=== PATIENT | female | born 1970 | race Caucasian/White ===

== ENCOUNTER 2018-07-30 19:05 | Emergency (ER) | payer MEDICAID, OTHER ==
[~2018-07-30] VITALS: Ht 170.2 cm; Wt 65.8 kg
[~2018-07-30 19:05] MED LIST: CARB400T; DEXT10TA9; LORA1TAB
--- OUTSIDE RECORDS SUMMARY | 2018-07-30 19:10 | XMS REPORT ---
Author Author NATE LEE [facility] Address [address] [place] [address] Care Team Providers Care Title I Assistant Name Role Phone JESUSNATE Unavailable PROBLEMS Type Condition ICD9-CM Code [id number] Code Onset Dates Condition Status SNOMED Code Problem Personality disorder in adult F60.9 Active 75635989 Problem Attention deficit disorder of adult F98.8 Active 095136465 Problem Episode of recurrent major depressive disorder, unspecified depression episode severity F33.9 Active 056874110 Problem Adjustment disorder with emotional disturbance F43.29 Active 19846608 Problem Bipolar disorder, unspecified F31.9 Active 25780407 Problem Generalized anxiety disorder F41.1 Active 07530842 ALLERGIES No Information SOCIAL HISTORY Never Assessed PLAN OF CARE Activity Details Follow Up 4 Weeks Reason: VITAL SIGNS Height 67 in 2017-03-17 Weight 182.8 lbs 2017-03-17 Heart Rate 81 bpm 2017-03-17 Respiratory Rate 20 2017-03-17 BMI 28.63 kg/m2 2017-03-17 Blood pressure systolic 130 mmHg 2017-03-17 Blood pressure diastolic 82 mmHg 2017-03-17 MEDICATIONS Medication Instructions Dosage Frequency Start Date End Date Duration Status Concerta 18 MG Orally Once a day 1 tablet in the morning 24h March, Apr, 28 days Active Lamictal 100 MG Orally Twice a day 1/2 tablet 12h Feb, 30 days Active Latuda 60 MG Orally Once a day 1 tablet with food 24h Feb, 30 days Active RESULTS No Results PROCEDURES No Known procedures IMMUNIZATIONS No Known Immunizations MEDICAL (GENERAL) HISTORY Type Description Date Medical History ADHD Medical History Bipolar I Disorder without psychotic features Medical History Tobacco User Surgical History Left Knee Surgical History Ovaries Removed Surgical History Rectum Surgery Hospitalization History Surgeries
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
--- OUTSIDE RECORDS SUMMARY | 2018-07-30 19:11 | XMS REPORT ---
Author Author LARRY NOBLE [facility] Address [address] [place] [address] Care Team Providers Care Client Resource Specialist Name Role Phone REAL LARRY Unavailable PROBLEMS Type Condition ICD9-CM Code [id number] Code Onset Dates Condition Status SNOMED Code Problem Adjustment disorder with emotional disturbance F43.29 Active 42506717 Problem Bipolar disorder, unspecified F31.9 Active 75061321 Problem Generalized anxiety disorder F41.1 Active 20983816 Problem Episode of recurrent major depressive disorder, unspecified depression episode severity F33.9 Active 119880182 Problem PTSD (post-traumatic stress disorder) F43.10 Active 43203069 Problem ADHD, predominantly inattentive type F90.0 Active 61523616 Problem Personality disorder in adult F60.9 Active 20127802 Problem Attention deficit disorder of adult F98.8 Active 014381753 Problem Bipolar 2 disorder F31.81 Active 14387617 Problem Panic disorder with agoraphobia F40.01 Active 07879241 ALLERGIES Substance Reaction Event Type Date Status Tegretol rash limited to trunk Drug Allergy Oct, Active ENCOUNTERS Encounter Location Date Diagnosis [facility] [id number] [address] Nov, Bipolar 2 disorder F31.81 ; PTSD (post-traumatic stress disorder) F43.10 ; ADHD, predominantly inattentive type F90.0 and Panic disorder with agoraphobia F40.01 [facility] [id number] [address] Oct, Bipolar 2 disorder F31.81 ; PTSD (post-traumatic stress disorder) F43.10 ; ADHD, predominantly inattentive type F90.0 and Panic disorder with agoraphobia F40.01 [facility] [id number] [address] Sep, Generalized anxiety disorder F41.1 ; Attention deficit disorder of adult F98.8 and Personality disorder in adult F60.9 [facility] [address], [place] [address] Aug, Generalized anxiety disorder F41.1 ; Attention deficit disorder of adult F98.8 and Personality disorder in adult F60.9 [facility] [address], [place] [address] Jul, Generalized anxiety disorder F41.1 ; Attention deficit disorder of adult F98.8 and Personality disorder in adult F60.9 [facility] [address] [place] [address] Jun, Generalized anxiety disorder F41.1 ; Attention deficit disorder of adult F98.8 and Personality disorder in adult F60.9 [facility] [address] [address] Jun, [facility] [id number] [place] [address] May, Generalized anxiety disorder F41.1 ; Attention deficit disorder of adult F98.8 and Personality disorder in adult F60.9 [facility] [address], [place] [address] Apr, Generalized anxiety disorder F41.1 ; Bipolar disorder, unspecified F31.9 ; Attention deficit disorder of adult F98.8 and Personality disorder in adult F60.9 [facility] [address], [place] [address] Apr, [facility] [address], [place] [address] Apr, Generalized anxiety disorder F41.1 ; Bipolar disorder, unspecified F31.9 ; Attention deficit disorder of adult F98.8 and Personality disorder in adult F60.9 [facility] [address], [place] [address] March, Generalized anxiety disorder F41.1 ; Bipolar disorder, unspecified F31.9 and Attention deficit disorder of adult F98.8 [address] [address] [place] [address] March, Generalized anxiety disorder F41.1 ; Bipolar disorder, unspecified F31.9 and Attention deficit disorder of adult F98.8 [place] [address], [place] [address] Feb, Bipolar disorder, unspecified F31.9 [place] [id number] [place] [address] Feb, Generalized anxiety disorder F41.1 and Bipolar disorder, unspecified F31.9 [address] [address] [place] [address] Jan, [address] [id number] [place] [address] Jan, [address] [address] [id number] [place] [address] Jan, Adjustment disorder with emotional disturbance F43.29 ; Episode of recurrent major depressive disorder, unspecified depression episode severity F33.9 and Generalized anxiety disorder F41.1 IMMUNIZATIONS No Known Immunizations SOCIAL HISTORY Never Assessed REASON FOR VISIT intake PLAN OF CARE Activity Details Follow Up 4 Weeks Reason: VITAL SIGNS Height 67 in 2017-10-19 Weight 172.4 lbs 2017-10-19 Heart Rate 76 bpm 2017-10-19 Respiratory Rate 20 2017-10-19 BMI 27.00 kg/m2 2017-10-19 Blood pressure systolic 104 mmHg 2017-10-19 Blood pressure diastolic 70 mmHg 2017-10-19 MEDICATIONS Medication Instructions Dosage Frequency Start Date End Date Duration Status Fluoxetine HCl 60 mg Orally Once a day 1 tablet 24h Active Prazosin HCl 1 MG Orally for nightmares 1 capsule at bedtime Oct, Active Haloperidol 0.5 MG Orally at bedtime 1 tablet Active Adderall XR 30 MG Orally Once a day 1 capsule in the morning 24h Active Haloperidol 5 mg Orally at bedtime 1 tablet 30 days Unknown Amoxicillin 500 MG Orally 3 times a day 1 tablet 8h Unknown RESULTS No Results PROCEDURES Procedure Date Ordered Result Body Site Psychotherapy, patient &/family, with E&M, 30 minutes, established patient Oct 19, 2017 INSTRUCTIONS MEDICATIONS ADMINISTERED No Known Medications MEDICAL [...]
--- OUTSIDE RECORDS SUMMARY | 2018-07-30 19:11 | XMS REPORT ---
Author Author MOUSTAPHA WEEMS Organization [facility] Address [address] [place] [address] Care Team Providers Care Director Auto Name Role Phone MOUSTAPHA WEEMS Unavailable PROBLEMS Type Condition ICD9-CM Code [id number] Code Onset Dates Condition Status SNOMED Code Problem Personality disorder in adult F60.9 Active 34734396 Problem Attention deficit disorder of adult F98.8 Active 732968606 Problem Episode of recurrent major depressive disorder, unspecified depression episode severity F33.9 Active 327965631 Problem Adjustment disorder with emotional disturbance F43.29 Active 14982221 Problem Bipolar disorder, unspecified F31.9 Active 04463698 Problem Generalized anxiety disorder F41.1 Active 19235329 ALLERGIES No Information SOCIAL HISTORY Never Assessed PLAN OF CARE Activity Details Follow Up Not scheduled with me Reason:psychiatric provider VITAL SIGNS MEDICATIONS Unknown Medications RESULTS No Results PROCEDURES Procedure Date Ordered Result Body Site Psych diagnostic evaluation, new patient January 23, 2017 IMMUNIZATIONS No Known Immunizations MEDICAL (GENERAL) HISTORY Type Description Date Medical History ADHD Medical History Bipolar I Disorder without psychotic features Medical History Tobacco User Surgical History Left Knee Surgical History Ovaries Removed Surgical History Rectum Surgery Hospitalization History Surgeries
--- OUTSIDE RECORDS SUMMARY | 2018-07-30 19:11 | XMS REPORT ---
Author Author NATE LEE [facility] Address [address] [place] [address] Care Team Providers Care Sprinkling System Installer Name Role Phone NATE LEE Unavailable PROBLEMS Type Condition ICD9-CM Code TII33-AR Code Onset Dates Condition Status SNOMED Code Problem Adjustment disorder with emotional disturbance F43.29 Active 36836053 Problem Bipolar disorder, unspecified F31.9 Active 97764855 Problem Generalized anxiety disorder F41.1 Active 27935557 Problem Episode of recurrent major depressive disorder, unspecified depression episode severity F33.9 Active 421078069 Problem PTSD (post-traumatic stress disorder) F43.10 Active 03060194 Problem ADHD, predominantly inattentive type F90.0 Active 05531670 Problem Personality disorder in adult F60.9 Active 28772355 Problem Attention deficit disorder of adult F98.8 Active 119005631 Problem Bipolar 2 disorder F31.81 Active 80846395 Problem Panic disorder with agoraphobia F40.01 Active 02836935 ALLERGIES Substance Reaction Event Type Date Status Tegretol Unknown Drug Allergy Jun, Active ENCOUNTERS Encounter Location Date Diagnosis [address] [place] [address] Nov, Bipolar 2 disorder F31.81 ; PTSD (post-traumatic stress disorder) F43.10 ; ADHD, predominantly inattentive type F90.0 and Panic disorder with agoraphobia F40.01 [id number], [place] [address] Oct, Bipolar 2 disorder F31.81 ; PTSD (post-traumatic stress disorder) F43.10 ; ADHD, predominantly inattentive type F90.0 and Panic disorder with agoraphobia F40.01 [address] [place] [address] Sep, Generalized anxiety disorder F41.1 ; Attention deficit disorder of adult F98.8 and Personality disorder in adult F60.9 [facility] [place] [address], [place] [address] Aug, Generalized anxiety disorder F41.1 ; Attention deficit disorder of adult F98.8 and Personality disorder in adult F60.9 [facility] [place] [address], [place] [address] Jul, Generalized anxiety disorder F41.1 ; Attention deficit disorder of adult F98.8 and Personality disorder in adult F60.9 [facility] [place] [address], [place] [address] Jun, Generalized anxiety disorder F41.1 ; Attention deficit disorder of adult F98.8 and Personality disorder in adult F60.9 [facility] [place] [address], [place] [address] Jun, [facility] [place] [id number] [place] [address] May, Generalized anxiety disorder F41.1 ; Attention deficit disorder of adult F98.8 and Personality disorder in adult F60.9 [facility] [place] [address], [place] [address] Apr, Generalized anxiety disorder F41.1 ; Bipolar disorder, unspecified F31.9 ; Attention deficit disorder of adult F98.8 and Personality disorder in adult F60.9 [facility] [place] [address], [place] [address] Apr, [facility] [place] [address], [place] [address] Apr, Generalized anxiety disorder F41.1 ; Bipolar disorder, unspecified F31.9 ; Attention deficit disorder of adult F98.8 and Personality disorder in adult F60.9 [facility] [place] [address], [place] [address] March, Generalized anxiety disorder F41.1 ; Bipolar disorder, unspecified F31.9 and Attention deficit disorder of adult F98.8 [address] [place] [address] March, Generalized anxiety disorder F41.1 ; Bipolar disorder, unspecified F31.9 and Attention deficit disorder of adult F98.8 [address], [place] [address] Feb, Bipolar disorder, unspecified F31.9 [address] [id number] [place] [address] Feb, Generalized anxiety disorder F41.1 and Bipolar disorder, unspecified F31.9 [place] [id number] [place] [address] Jan, [place] [id number] [place] [address] Jan, [address] [id number] [place] [address] Jan, Adjustment disorder with emotional disturbance F43.29 ; Episode of recurrent major depressive disorder, unspecified depression episode severity F33.9 and Generalized anxiety disorder F41.1 IMMUNIZATIONS No Known Immunizations SOCIAL HISTORY Never Assessed REASON FOR VISIT torsten/haley Luciano MA PLAN OF CARE Activity Details Follow Up 4 Weeks Reason: VITAL SIGNS Height 67 in 2017-06-28 Weight 174.9 lbs 2017-06-28 Heart Rate 80 bpm 2017-06-28 Respiratory Rate 20 2017-06-28 BMI 27.39 kg/m2 2017-06-28 Blood pressure systolic 113 mmHg 2017-06-28 Blood pressure diastolic 77 mmHg 2017-06-28 MEDICATIONS Medication Instructions Dosage Frequency Start Date End Date Duration Status Advil 200 MG Orally every 6 hrs 1 tablet with food or milk as needed 6h Active Fluoxetine HCl 40 mg Orally Once a day 1 tablet in the morning 24h 30 day(s) Active Haloperidol 5 mg Orally Once a day 1 tablet 24h 30 days Active Adderall XR 30 MG Orally Once a day 1 capsule in the morning 24h Jun, 28 days Active RESULTS Name Result Date Reference Range URINE DRUG SCREEN (IN HOUSE) 2017-06-28 Lot # [id number] Exp date 2018-12 Control + COCAINE Negative AMPH Positive MTD Negative THC Positive OPIATE Negative BENZO Negative PCP Negative BAR Negative OXY Negative MAMP Negative TCA Not tested BUP Negative MDMA Negative PROCEDURES Procedure Date Ordered Result Body Site DRUG TEST PRSMV DIR OPT OBS Jun 28, 2017 INSTRUCTIONS MEDICATIONS ADMINISTERED No Known Medications [...]
--- OUTSIDE RECORDS SUMMARY | 2018-07-30 19:11 | XMS REPORT ---
Author Author NATE LEE [facility] Address [address] [place] [address] Care Team Providers Care Horticulture Instructor Name Role Phone NEGRA LEEGEOFF Unavailable PROBLEMS Type Condition ICD9-CM Code [id number] Code Onset Dates Condition Status SNOMED Code Problem Personality disorder in adult F60.9 Active 04711879 Problem Attention deficit disorder of adult F98.8 Active 122258505 Problem Episode of recurrent major depressive disorder, unspecified depression episode severity F33.9 Active 522782914 Problem Adjustment disorder with emotional disturbance F43.29 Active 12914593 Problem Bipolar disorder, unspecified F31.9 Active 50533401 Problem Generalized anxiety disorder F41.1 Active 25113328 ALLERGIES Substance Reaction Event Type Date Status Tegretol Unknown Drug Allergy Feb, Active SOCIAL HISTORY Never Assessed PLAN OF CARE Activity Details Follow Up 2 Weeks Reason: VITAL SIGNS Height 67 in 2017-03-03 Weight 190.3 lbs 2017-03-03 Heart Rate 76 bpm 2017-03-03 Respiratory Rate 20 2017-03-03 BMI 29.80 kg/m2 2017-03-03 Blood pressure systolic 128 mmHg 2017-03-03 Blood pressure diastolic 90 mmHg 2017-03-03 MEDICATIONS Medication Instructions Dosage Frequency Start Date End Date Duration Status Adderall 15 MG Orally twice a day 1 tablet 12h Active Lamictal 25 MG Orally Twice a day 1 tablet 12h Feb, 30 day(s) Active Lorazepam 1 MG Orally 3 times a day 1 tablet at bedtime as needed 8h Active Albuterol Sulfate HFA 108 (90 Base) MCG/ACT Inhalation every 4 hrs 2 puffs as needed 4h Active Haloperidol 5 mg Orally Once a day .5 tablet 24h Active Latuda 40 MG Orally Once a day 1 tablet with food 24h Feb, 30 day(s) Active RESULTS No Results PROCEDURES No Known procedures IMMUNIZATIONS No Known Immunizations MEDICAL (GENERAL) HISTORY Type Description Date Medical History ADHD Medical History Bipolar I Disorder without psychotic features Medical History Tobacco User Surgical History Left Knee Surgical History Ovaries Removed Surgical History Rectum Surgery Hospitalization History Surgeries
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
--- OUTSIDE RECORDS SUMMARY | 2018-07-30 19:11 | XMS REPORT ---
Author Author NATE LEE [facility] Address [address] [place] [address] Care Team Providers Care Manager Project Name Role Phone NATE LEE Unavailable PROBLEMS Type Condition ICD9-CM Code [id number] Code Onset Dates Condition Status SNOMED Code Problem Adjustment disorder with emotional disturbance F43.29 Active 51208747 Problem Bipolar disorder, unspecified F31.9 Active 49348414 Problem Generalized anxiety disorder F41.1 Active 37900821 Problem Episode of recurrent major depressive disorder, unspecified depression episode severity F33.9 Active 626146050 Problem PTSD (post-traumatic stress disorder) F43.10 Active 40155388 Problem ADHD, predominantly inattentive type F90.0 Active 03439052 Problem Personality disorder in adult F60.9 Active 96261973 Problem Attention deficit disorder of adult F98.8 Active 350502953 Problem Bipolar 2 disorder F31.81 Active 12899835 Problem Panic disorder with agoraphobia F40.01 Active 80141792 ALLERGIES Substance Reaction Event Type Date Status Tegretol Unknown Drug Allergy Apr, Active ENCOUNTERS Encounter Location Date Diagnosis [address] [id number] [place] [address] Nov, Bipolar 2 disorder F31.81 ; PTSD (post-traumatic stress disorder) F43.10 ; ADHD, predominantly inattentive type F90.0 and Panic disorder with agoraphobia F40.01 [address] [id number] [address] Oct, Bipolar 2 disorder F31.81 ; PTSD (post-traumatic stress disorder) F43.10 ; ADHD, predominantly inattentive type F90.0 and Panic disorder with agoraphobia F40.01 [address] [place] [address] Sep, Generalized anxiety disorder F41.1 ; Attention deficit disorder of adult F98.8 and Personality disorder in adult F60.9 [facility] [address] [address] Aug, Generalized anxiety disorder F41.1 ; Attention deficit disorder of adult F98.8 and Personality disorder in adult F60.9 [facility] [address] [address] Jul, Generalized anxiety disorder F41.1 ; Attention deficit disorder of adult F98.8 and Personality disorder in adult F60.9 [facility] [address] [address] Jun, Generalized anxiety disorder F41.1 ; Attention deficit disorder of adult F98.8 and Personality disorder in adult F60.9 [facility] [address] [address] Jun, [facility] [id number] [place] [address] May, Generalized anxiety disorder F41.1 ; Attention deficit disorder of adult F98.8 and Personality disorder in adult F60.9 [facility] [address] [address] Apr, Generalized anxiety disorder F41.1 ; Bipolar disorder, unspecified F31.9 ; Attention deficit disorder of adult F98.8 and Personality disorder in adult F60.9 [facility] [address] [address] Apr, [facility] [address] [address] Apr, Generalized anxiety disorder F41.1 ; Bipolar disorder, unspecified F31.9 ; Attention deficit disorder of adult F98.8 and Personality disorder in adult F60.9 [facility] [address] [address] March, Generalized anxiety disorder F41.1 ; Bipolar disorder, unspecified F31.9 and Attention deficit disorder of adult F98.8 [address] [address] [place] [address] March, Generalized anxiety disorder F41.1 ; Bipolar disorder, unspecified F31.9 and Attention deficit disorder of adult F98.8 [address] [address] Feb, Bipolar disorder, unspecified F31.9 [address] [id number] [place] [address] Feb, Generalized anxiety disorder F41.1 and Bipolar disorder, unspecified F31.9 [address] [id number] [place] [address] Jan, [address] [id number] [place] [address] Jan, [id number] [place] [address] Jan, Adjustment disorder with emotional disturbance F43.29 ; Episode of recurrent major depressive disorder, unspecified depression episode severity F33.9 and Generalized anxiety disorder F41.1 IMMUNIZATIONS No Known Immunizations SOCIAL HISTORY Never Assessed REASON FOR VISIT f/keenan Soto PLAN OF CARE Activity Details Follow Up 4 Weeks Reason: VITAL SIGNS Height 67 in 2017-05-05 Weight 184.3 lbs 2017-05-05 Heart Rate 68 bpm 2017-05-05 Respiratory Rate 20 2017-05-05 BMI 28.86 kg/m2 2017-05-05 Blood pressure systolic 116 mmHg 2017-05-05 Blood pressure diastolic 84 mmHg 2017-05-05 MEDICATIONS Medication Instructions Dosage Frequency Start Date End Date Duration Status Adderall XR 20 MG Orally Once a day 1 capsule in the morning 24h Apr, 28 days Active Haloperidol 5 mg Orally Once a day 1 tablet 24h 30 days Active Fluoxetine HCl 20 MG Orally Once a day 1 tablet in the morning 24h Apr, 30 day(s) Active Advil 200 MG Orally every 6 hrs 1 tablet with food or milk as needed 6h Active RESULTS No Results PROCEDURES No Known [...]
--- OUTSIDE RECORDS SUMMARY | 2018-07-30 19:11 | XMS REPORT ---
Author Author NATE LEE [facility] Address [address] [place] [address] Care Team Providers Care Force Dispatcher Name Role Phone JESUSNATE Unavailable PROBLEMS Type Condition ICD9-CM Code [id number] Code Onset Dates Condition Status SNOMED Code Problem Personality disorder in adult F60.9 Active 14091489 Problem Attention deficit disorder of adult F98.8 Active 694207955 Problem Episode of recurrent major depressive disorder, unspecified depression episode severity F33.9 Active 293609594 Problem Adjustment disorder with emotional disturbance F43.29 Active 54307028 Problem Bipolar disorder, unspecified F31.9 Active 03185295 Problem Generalized anxiety disorder F41.1 Active 02089296 ALLERGIES Substance Reaction Event Type Date Status Tegretol Unknown Drug Allergy March, Active SOCIAL HISTORY Never Assessed PLAN OF CARE Activity Details Follow Up 6 Weeks Reason: VITAL SIGNS Height 67 in 2017-03-29 Weight 177.2 lbs 2017-03-29 Heart Rate 118 bpm 2017-03-29 Respiratory Rate 22 2017-03-29 BMI 27.75 kg/m2 2017-03-29 Blood pressure systolic 113 mmHg 2017-03-29 Blood pressure diastolic 85 mmHg 2017-03-29 MEDICATIONS Medication Instructions Dosage Frequency Start Date End Date Duration Status Haloperidol 5 mg Orally Once a day .5 tablet 24h 30 days Active Adderall XR 10 mg Orally Once a day 1 capsule in the morning 24h March, 28 days Active RESULTS No Results PROCEDURES No Known procedures IMMUNIZATIONS No Known Immunizations MEDICAL (GENERAL) HISTORY Type Description Date Medical History ADHD Medical History Bipolar I Disorder without psychotic features Medical History Tobacco User Surgical History Left Knee Surgical History Ovaries Removed Surgical History Rectum Surgery Hospitalization History Surgeries
--- OUTSIDE RECORDS SUMMARY | 2018-07-30 19:12 | XMS REPORT | Continuity of Care Document ---
Author Author [facility] Organization [facility] Address Unknown Phone Unavailable Allergies Active Description Code Type Severity Reaction Onset Reported/Identified Relationship to Patient Clinical Status Yes No Known Drug Allergies [id number] Drug Allergy Mild N/A 11/03/2009 Medications There is no data. Problems Date Dx Coded Attending Type Code Diagnosis Diagnosed By 11/09/2009 Ot 455.3 EXT HEMORRHOID W/O COMPL 11/09/2009 Ot 455.9 RESIDUAL HEMORRHOID TAGS 11/09/2009 Ot 565.0 ANAL FISSURE 02/12/2015 Ot 455.9 02/12/2015 Ot 565.1 02/12/2015 Ot V72.83 02/12/2015 Ot V74.8 05/27/2016 STEFANIE GARCIA MD Ot 311 DEPRESSIVE DISORDER NEC 05/27/2016 STEFANIE GARCIA MD Ot 575.8 DIS OF GALLBLADDER NEC 05/27/2016 STEFANIE GARCIA MD Ot 780.79 OTH MALAISE FATIGUE 05/27/2016 STEFANIE GARCIA MD Ot 780.99 OTHER GENERAL SYMPTOMS NOS 05/27/2016 STEFANIE GARCIA MD Ot 783.1 ABNORMAL WEIGHT GAIN 05/28/2016 STEFANIE GARCIA MD Ot 311 DEPRESSIVE DISORDER NEC 05/28/2016 STEFANIE GARCIA MD Ot 575.8 DIS OF GALLBLADDER NEC 05/28/2016 STEFANIE GARCIA MD Ot 780.79 OTH MALAISE FATIGUE 05/28/2016 STEFANIE GARCIA MD Ot 780.99 OTHER GENERAL SYMPTOMS NOS 05/28/2016 STEFANIE GARCIA MD Ot 783.1 ABNORMAL WEIGHT GAIN 06/17/2016 STEFANIE GARCIA MD Ot 311 DEPRESSIVE DISORDER NEC 06/17/2016 STEFANIE GARCIA MD Ot 575.8 DIS OF GALLBLADDER NEC 06/17/2016 STEFANIE GARCIA MD Ot 780.79 OTH MALAISE FATIGUE 06/17/2016 STEFANIE GARCIA MD Ot 780.99 OTHER GENERAL SYMPTOMS NOS 06/17/2016 STEFANIE GARCIA MD Ot 783.1 ABNORMAL WEIGHT GAIN 06/20/2016 STEFANIE GARCIA MD Ot 311 DEPRESSIVE DISORDER NEC 06/20/2016 STEFANIE GARCIA MD Ot 575.8 DIS OF GALLBLADDER NEC 06/20/2016 STEFANIE GARCIA MD Ot 780.79 OTH MALAISE FATIGUE 06/20/2016 STEFANIE GARCIA MD Ot 780.99 OTHER GENERAL SYMPTOMS NOS 06/20/2016 STEFANIE GARCIA MD Ot 783.1 ABNORMAL WEIGHT GAIN 07/22/2016 STEFANIE GARCIA MD Ot 311 DEPRESSIVE DISORDER NEC 07/22/2016 STEFANIE GARCIA MD Ot 575.8 DIS OF GALLBLADDER NEC 07/22/2016 STEFANIE GARCIA MD Ot 780.79 OTH MALAISE FATIGUE 07/22/2016 STEFANIE GARCIA MD Ot 780.99 OTHER GENERAL SYMPTOMS NOS 07/22/2016 STEFANIE GARCIA MD Ot 783.1 ABNORMAL WEIGHT GAIN 07/22/2016 YARITZA SNELL MD Ot 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, CRNT EPSD MIXED, SEVERE, 07/22/2016 YARITZA SNELL MD Ot F90.2 ATTENTION-DEFICIT HYPERACTIVITY DISORDER 07/22/2016 YARITZA SNELL MD Ot 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, CRNT EPSD MIXED, SEVERE, 07/22/2016 YARITZA SNELL MD Ot F90.2 ATTENTION-DEFICIT HYPERACTIVITY DISORDER 07/22/2016 STEFANIE GARCIA MD Ot 311 DEPRESSIVE DISORDER NEC 07/22/2016 STEFANIE GARCIA MD Ot 575.8 DIS OF GALLBLADDER NEC 07/22/2016 STEFANIE GARCIA MD Ot 780.79 OTH MALAISE FATIGUE 07/22/2016 STEFANIE GARCIA MD Ot 780.99 OTHER GENERAL SYMPTOMS NOS 07/22/2016 STEFANIE GARCIA MD Ot 783.1 ABNORMAL WEIGHT GAIN 07/22/2016 YARITZA SNELL MD Ot 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, CRNT EPSD MIXED, SEVERE, 07/22/2016 YARITZA SNELL MD Ot F90.2 ATTENTION-DEFICIT HYPERACTIVITY DISORDER 07/25/2016 YARITZA SNELL MD, Ot 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, CRNT EPSD MIXED, SEVERE, 07/25/2016 YARITZA SNELL MD Ot F90.2 ATTENTION-DEFICIT HYPERACTIVITY DISORDER 07/25/2016 YARITZA SNELL MD Ot Z79.899 OTHER RESIDENTIAL (CURRENT) DRUG THERAPY 07/26/2016 YARITZA SNELL MD, Ot 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, CRNT EPSD MIXED, SEVERE, 07/26/2016 YARITZA SNELL MD Ot F90.2 ATTENTION-DEFICIT HYPERACTIVITY DISORDER 07/26/2016 YARITZA SNELL MD Ot Z79.899 OTHER RESIDENTIAL (CURRENT) DRUG THERAPY 08/04/2016 STEFANIE GARCIA MD Ot 311 DEPRESSIVE DISORDER NEC 08/04/2016 STEFANIE GARCIA MD Ot 575.8 DIS OF GALLBLADDER NEC 08/04/2016 STEFANIE GARCIA MD Ot 780.79 OTH MALAISE FATIGUE 08/04/2016 STEFANIE GARCIA MD Ot 780.99 OTHER GENERAL SYMPTOMS NOS 08/04/2016 STEFANIE GARCIA MD Ot 783.1 ABNORMAL WEIGHT GAIN 08/04/2016 YARITZA SNELL MD Ot 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, CRNT EPSD MIXED, SEVERE, 08/04/2016 YARITZA SNELL MD Ot F90.2 ATTENTION-DEFICIT HYPERACTIVITY DISORDER 08/10/2016 YARITZA SNELL MD Ot 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, CRNT EPSD MIXED, SEVERE, 08/10/2016 YARITZA SNELL MD Ot F90.2 ATTENTION-DEFICIT HYPERACTIVITY DISORDER 08/10/2016 YARITZA SNELL MD Ot Z79.899 OTHER CANE WEIGHER (CURRENT) DRUG THERAPY 08/12/2016 Ot 455.9 RESIDUAL HEMORRHOID TAGS 08/12/2016 Ot 565.1 ANAL FISTULA 08/12/2016 Ot V72.83 EXAM PRE- OPERATIVE NEC 08/12/2016 Ot V74.8 SCREEN- BACTERIAL DIS NEC 08/12/2016 STEFANIE GARCIA MD Ot 311 DEPRESSIVE DISORDER NEC 08/12/2016 STEFANIE GARCIA MD Ot 575.8 DIS OF GALLBLADDER NEC 08/12/2016 STEFANIE GARCIA MD Ot 780.79 OTH MALAISE FATIGUE 08/12/2016 STEFANIE GARCIA MD Ot 780.99 OTHER GENERAL SYMPTOMS NOS 08/12/2016 STEFANIE GARCIA MD Ot 783.1 ABNORMAL WEIGHT GAIN 08/12/2016 YARITZA SNELL MD, Ot 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, CRNT EPSD MIXED, SEVERE, 08/12/2016 YARITZA SNELL MD Ot F90.2 ATTENTION-DEFICIT HYPERACTIVITY DISORDER 08/12/2016 YARITZA SNELL MD, Ot 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, CRNT EPSD MIXED, SEVERE, 08/12/2016 YARITZA SNELL MD, Ot F90.2 ATTENTION-DEFICIT HYPERACTIVITY DISORDER 08/12/2016 YARITZA SNELL MD Ot Z79.899 OTHER CANE WEIGHER (CURRENT) DRUG THERAPY 11/22/2017 YARITZA SNELL MD, Ot 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 Results Test Result Range Complete blood count (CBC) with automated white blood cell (WBC) differential - 06/20/16 08:39 Blood leukocytes automated count (number/volume) 9.0 10*3/uL 4.3-11.0 Blood erythrocytes automated count (number/volume) 5.06 10*6/uL 4.35-5.85 Venous blood hemoglobin measurement (mass/volume) 15.8 g/dL 11.5-16.0 Blood hematocrit (volume fraction) 46 % 35-52 Automated erythrocyte mean corpuscular volume 92 [foz_us] 80-99 Automated erythrocyte mean corpuscular hemoglobin (mass per erythrocyte) 31 pg 25-34 Automated erythrocyte mean corpuscular hemoglobin concentration measurement ( mass/volume) 34 g/dL 32-36 Automated erythrocyte distribution width ratio 12.6 % 10.0-14.5 Automated blood platelet count (count/volume) 347 10*3/uL 130-400 Automated blood platelet mean volume measurement 10.8 [foz_us] 7.4-10.4 Automated blood neutrophils/100 leukocytes 62 % 42-75 Automated blood lymphocytes/100 leukocytes 25 % 12-44 Blood monocytes/100 leukocytes 10 % 0-12 Automated blood eosinophils/100 leukocytes 3 % 0-10 Automated blood basophils/100 leukocytes 1 % 0-10 Blood neutrophils automated count (number/volume) 5.5 10*3 1.8-7.8 Blood lymphocytes automated count (number/volume) 2.3 10*3 1.0-4.0 Blood monocytes automated count (number/volume) 0.9 10*3 0.0-1.0 Automated eosinophil count 0.3 10*3/uL 0.0-0.3 Automated blood basophil count (count/volume) 0.1 10*3/uL 0.0-0.1 Comprehensive metabolic panel - 06/20/16 08:39 Serum or plasma sodium measurement (moles/volume) 137 mmol/L 135-145 Serum or plasma potassium measurement (moles/volume) 4.1 mmol/L 3.6-5.0 Serum or plasma chloride measurement (moles/volume) 105 mmol/L 98-107 Carbon dioxide 27 mmol/L 21-32 Serum or plasma anion gap determination (moles/volume) 5 mmol/L 5-14 Serum or plasma urea nitrogen measurement (mass/volume) 7 mg/dL 7-18 Serum or plasma creatinine measurement (mass/volume) 0.78 mg/dL 0.60-1.30 Serum or plasma urea nitrogen/creatinine mass ratio 9 NRG Serum or plasma creatinine measurement with calculation of estimated glomerular filtration rate > NRG Serum or plasma glucose measurement (mass/volume) 115 mg/dL 70-105 Serum or plasma calcium measurement (mass/volume) 9.2 mg/dL 8.5-10.1 Serum or plasma total bilirubin measurement (mass/volume) 0.2 mg/dL 0.1-1.0 Serum or plasma alkaline phosphatase measurement (enzymatic activity/volume) 65 U/L 40-136 Serum or plasma aspartate aminotransferase measurement (enzymatic activity/ volume) 21 U/L 5-34 Serum or plasma alanine aminotransferase measurement (enzymatic activity/volume ) 15 U/L 0-55 Serum or plasma protein measurement (mass/volume) 7.1 g/dL 6.4-8.2 Serum or plasma albumin measurement (mass/volume) 4.3 g/dL 3.2-4.5 THYROID STIMULATING HORMONE - 06/20/16 08:39 THYROID STIMULATING HORMONE 8.61 u[iU]/mL 0.35-4.94 LITHIUM LEVEL - 06/20/16 08:39 [place] [mass/volume] in serum or plasma 0.4 % 0.5-1.5 LITHIUM LEVEL - 07/22/16 11:38 [place] [mass/volume] in serum or plasma 0.7 % 0.5-1.5 Encounters ACCT No. Visit Date/Time Discharge Status Pt. Type Provider Facility Loc./Unit Complaint [id number] 07/22/2016 11:01:00 07/22/2016 23:59:59 CLS Outpatient YARITZA SNELL MD [facility] LAB ADHD, BIPOLAR I DISORDER [id number] 06/20/2016 08:36:00 06/20/2016 23:59:59 CLS Outpatient YARITZA SNELL MD [facility] LAB BIPOLAR I DISORDER, PSYCHOTIC FEATURES, ADHD [id number] 02/12/2015 11:39:00 02/12/2015 23:59:59 CLS Outpatient STEFANIE GARCIA MD [facility] LAB FATIGUE,COLD INTOLERENCE,DEPRESSION,WT GAIN [id number] 07/30/2018 19:06:00 ACT Emergency KIRIT BERNARDO DO [facility] ER ABD PAIN [id number] 11/09/2009 05:45:00 Document Registration [id number] 11/03/2009 09:19:00 Document Registration [id number] 12/12/2017 12:00:00 12/12/2017 23:59:59 CLS Outpatient MALLORY MAYORGA LAC [facility]
[2018-07-30 20:47] LABS: BASOPHILS % (AUTO) 0 % (0-10); EOSINOPHILS # (AUTO) 0.2 10^3/uL (0.0-0.3); EOSINOPHILS % (AUTO) 2 % (0-10); HEMATOCRIT 42 % (35-52); LYMPHOCYTES % (AUTO) 33 % (12-44); MEAN CORPUSCULAR HEMOGLOBIN 31 PG (25-34); MEAN CORPUSCULAR HGB CONC 33 G/DL (32-36); MEAN CORPUSCULAR VOLUME 93 FL (80-99); MEAN PLATELET VOLUME 10.8 FL (7.4-10.4); MONOCYTES # (AUTO) 0.6 X 10^3 (0.0-1.0); MONOCYTES % (AUTO) 7 % (0-12); NEUTROPHILS # (AUTO) 5.1 X 10^3 (1.8-7.8); NEUTROPHILS % (AUTO) 58 % (42-75); PLATELET COUNT 366 10^3/uL (130-400); RED BLOOD COUNT 4.55 10^6/uL (4.35-5.85); RED CELL DISTRIBUTION WIDTH 13.3 % (10.0-14.5); WHITE BLOOD COUNT 8.9 10^3/uL (4.3-11.0)
--- NOTE | 2018-07-30 20:59 | ED Abdominal Pain ---
General Chief Complaint: Abdominal/GI Problems Stated Complaint: ABD PAIN Nursing Triage Note: pt reports started approx 6 weeks ago. states diarrhea off and on. verbalized some bright red even black stools since. states worsening. Sepsis Screen: No Definite Risk Source of Information: Patient Exam Limitations: No Limitations History of Present Illness Date Seen by Provider: Jul 30, 2018 Time Seen by Provider: 20:35 Initial Comments Here with report of intermittent abdominal pain over the last 6 weeks as well as rectal bleeding for the last 10 years. She states the bleeding is been on and off but she did note a black stool today. Denies nausea or vomiting. Abdominal pain is in the upper abdomen and reports his cramping. She has moved from [place] to [place] to [place] to [place] now. She is going to be staying here. Her mental health provider is here in town. Timing/Duration: Changing Over Time, Other (6 weeks) Severity/Quality: Moderate, Severe, Cramping Location: Epigastric Radiation: RUQ Modifying Factors: Improves With Antacids Associated Symptoms: No Fever/Chills; Other (intermittent bloody stools or black stools) Allergies and Home Medications Allergies Coded Allergies: No Known Drug Allergies (Unverified , 11/03/09) Patient Home Medication List Home Medication List Reviewed: Yes Review of Systems Review of Systems Constitutional: no symptoms reported EENTM: Nose Congestion; No Throat Pain Respiratory: Cough, Shortness of Air Cardiovascular: No Symptoms Reported Gastrointestinal: Abdominal Pain, Rectal Bleeding Genitourinary: Frequency, Urgency Musculoskeletal: no symptoms reported All Other Systems Reviewed Negative Unless Noted: Yes Past Xsgzkca-Vrfocj-Jtsaho Hx Past Med/Social Hx: Reviewed Nursing Past Med/Soc Hx Patient Social History Alcohol Use: Occasionally Uses Recreational Drug Use: Yes (pot) Smoking Status: Current Everyday Smoker Type Used: Cigarettes 2nd Hand Smoke Exposure: Yes Recent Foreign Travel: No Contact w/Someone Who Travel: No Recent Infectious Disease Expo: No Recent Hopitalizations: No Past Medical History Surgeries: Yes (ovarian cyst removal, rectal reconstruction ) Orthopedic Respiratory: Yes (DOES WHEEZE SOME DUE TO INGESTING PINESOL AN ) Cardiac: No Neurological: Yes (MIGRAINS) Reproductive Disorders: No Sexually Transmitted Disease: No Genitourinary: No Gastrointestinal: No Musculoskeletal: No Endocrine: No HEENT: No Cancer: No Psychosocial: Yes ADD/ADHD, Anxiety, Bipolar, Depression Integumentary: No Blood Disorders: No Family Medical History Reviewed Nursing Family Hx Physical Exam Vital Signs Vital Signs - First Documented 07/30/18 19:58 Temp 97.9 Pulse 68 Resp 20 B/P (MAP) 122/61 (81) Pulse Ox 99 O2 Delivery Room Air Capillary Refill : Less Than 3 Seconds Height/Weight/BMI Height: 5'7.00" Weight: 145lbs. oz. 65.956231lw; BMI Method:Stated General Appearance: WD/WN, mild distress HEENT: PERRL/EOMI, pharynx normal Neck: full range of motion, supple Respiratory: normal breath sounds, no respiratory distress, no accessory muscle use Cardiovascular: regular rate, rhythm, no murmur Gastrointestinal: normal bowel sounds, soft; No distended, No guarding, No rebound; tenderness (RUQ mild) Genital/Rectal: heme negative stool, other (scarring and tenderness of the rectum. Few hemorrhoids noted. No blood.) Extremities: non-tender, normal inspection Back: normal inspection, no CVA tenderness, no vertebral tenderness Neurologic/Psychiatric: alert, oriented x 3 Skin: normal color, warm/dry Progress/Results/Core Measures Results/Orders Lab Results Laboratory Tests Test 07/30/18 20:34 07/30/18 22:30 Range/Units White Blood Count 8.9 4.3-11.0 10^3/uL Red Blood Count 4.55 4.35-5.85 10^6/uL Hemoglobin 14.0 11.5-16.0 G/DL Hematocrit 42 35-52 % Mean Corpuscular Volume 93 80-99 FL Mean Corpuscular Hemoglobin 31 25-34 PG Mean Corpuscular Hemoglobin Concent 33 32-36 G/DL Red Cell Distribution Width 13.3 10.0-14.5 % Platelet Count 366 130-400 10^3/uL Mean Platelet Volume 10.8 H 7.4-10.4 FL Neutrophils (%) (Auto) 58 42-75 % Lymphocytes (%) (Auto) 33 12-44 % Monocytes (%) (Auto) 7 0-12 % Eosinophils (%) (Auto) 2 0-10 % Basophils (%) (Auto) 0 0-10 % Neutrophils # (Auto) 5.1 1.8-7.8 X 10^3 Lymphocytes # (Auto) 3.0 1.0-4.0 X 10^3 Monocytes # (Auto) 0.6 0.0-1.0 X 10^3 Eosinophils # (Auto) 0.2 0.0-0.3 10^3/uL Basophils # (Auto) 0.0 0.0-0.1 10^3/uL Sodium Level 141 135-145 MMOL/L Potassium Level 3.7 3.6-5.0 MMOL/L Chloride Level 108 H 98-107 MMOL/L Carbon Dioxide Level 24 21-32 MMOL/L Anion Gap 9 5-14 MMOL/L Blood Urea Nitrogen 7 7-18 MG/DL Creatinine 0.86 0.60-1.30 MG/DL Estimat Glomerular Filtration Rate > 60 BUN/Creatinine Ratio 8 Glucose Level 95 70-105 MG/DL Calcium Level 9.0 8.5-10.1 MG/DL Corrected Calcium 8.9 8.5-10.1 MG/DL Total Bilirubin 0.2 0.1-1.0 MG/DL Aspartate Amino Transf (AST/SGOT) 17 5-34 U/L Alanine Aminotransferase (ALT/SGPT) 15 0-55 U/L Alkaline Phosphatase 63 40-136 U/L Total Protein 6.7 6.4-8.2 GM/DL Albumin 4.1 3.2-4.5 GM/DL Serum Test, Qualitative NEGATIVE NEGATIVE Urine Color YELLOW Urine Clarity CLEAR Urine pH 6.5 5-9 Urine Specific Towner 1.015 L 1.016-1.022 Urine Protein NEGATIVE NEGATIVE Urine Glucose (UA) NEGATIVE NEGATIVE Urine Ketones NEGATIVE NEGATIVE Urine Nitrite NEGATIVE NEGATIVE Urine Bilirubin NEGATIVE NEGATIVE Urine Urobilinogen NORMAL NORMAL MG/DL Urine Leukocyte Esterase NEGATIVE NEGATIVE Urine RBC (Auto) NEGATIVE NEGATIVE Urine RBC RARE /HPF Urine WBC 0-2 /HPF Urine Squamous Epithelial Cells 2-5 /HPF Urine Crystals NONE /LPF Urine Bacteria FEW H /HPF Urine Casts NONE /LPF Urine Mucus MODERATE H /LPF Urine Culture Indicated NO My Orders Orders - EULALIO LIND MD Fecal Occult Bedside (07/30/18 20:59) Saline Lock/Iv-Start (07/30/18 21:05) Ns Iv 1000 Ml (Sodium Chloride 0.9%) (07/30/18 21:05) Ns Iv 1000 Ml (Sodium Chloride 0.9%) (07/30/18 21:03) Ct Abdomen/Pelvis W (07/30/18 21:31) Hcg,Qualitative Serum (07/30/18 21:31) Iohexol Injection (Omnipaque 350 Mg/Ml 1 (07/30/18 22:30) Ns (Ivpb) (Sodium Chloride 0.9% Ivpb Bag (07/30/18 22:30) Lidocaine 2% Viscous 15 Ml (Xylocaine Vi (07/30/18 23:30) Antacid Suspension (Mylanta Suspension (07/30/18 23:30) Fentanyl Injection (Sublimaze Injection (07/30/18 23:19) Pantoprazole Injection (Protonix Injecti (07/30/18 23:30) Medications Given in ED Current Medications Medications Dose Ordered Sig/Amrit Route Start Time Stop Time Status Last Admin Dose Admin Al Hydrox/Mg Hydrox/Simethicone 30 ml ONCE ONCE PO 07/30/18 23:30 07/30/18 23:31 DC 07/30/18 23:38 30 ML Iohexol 100 ml ONCE ONCE IV 07/30/18 22:30 07/30/18 22:34 DC 07/30/18 22:31 100 ML Lidocaine HCl 15 ml ONCE ONCE PO 07/30/18 23:30 07/30/18 23:31 DC 07/30/18 23:38 15 ML Pantoprazole 40 mg ONCE ONCE IV 07/30/18 23:30 07/30/18 23:31 DC 07/30/18 23:38 40 MG Sodium Chloride 100 ml ONCE ONCE IV 07/30/18 22:30 07/30/18 22:34 DC 07/30/18 22:31 80 ML Sodium Chloride 1,000 ml @ 0 mls/hr Q0M ONCE IV 07/30/18 21:05 07/30/18 21:06 DC 07/30/18 21:11 0 MLS/HR Vital Signs/I&O 07/30/18 19:58 Temp 97.9 Pulse 68 Resp 20 B/P (MAP) 122/61 (81) Pulse Ox 99 O2 Delivery Room Air Blood Pressure Mean: 81 Progress Progress Note : Progress Note Seen and evaluated. IV, labs, UA, normal saline 1 L bolus ordered. Rectal exam performed and Hemoccult negative. She does have a fair amount of scarring and a few hemorrhoids. CT abdomen pelvis with contrast ordered. Monitor patient. 2340: Fentanyl 50 g IV, Protonix 40 mg IV and GI cocktail ordered pending CT results. 0015: Pain completely resolved after GI cocktail. CT results negative. I did talk with her about the importance of follow-up including follow-up with a surgeon for endoscopy. Patient verbalize understanding. Discharged home with return precautions. Patient verbalize understanding instructions and agreement with plan. Diagnostic Imaging Diagonstic Imaging: CT Plain Films/CT/US/NM/MRI: abdomen, pelvis Comments No acute process Reviewed: Reviewed Night [facility] Study Departure Impression Primary Impression: Upper abdominal pain Disposition: HOME, SELF-CARE Condition: Improved Departure-Patient Inst. Decision time for Depature: 00:16 Referrals: NO,LOCAL PHYSICIAN (PCP) Primary Care Physician DUNG LI MD [facility] Patient Instructions: Acute Abdomen (Belly Pain), Adult (DC), Peptic Ulcers (DC ) Add. Discharge Instructions: All discharge instructions reviewed with patient and/or family. Voiced understanding. You may take over the counter omeprazole or similar 20 mg daily for the next 2- 6 weeks. You might also take [id number] Pepcid or the generic famotidine 20 mg once or twice a day to help with stomach acid. Avoid spicy or fatty foods. Is very important that you follow-up with your doctor or doctor of your choosing for further evaluation including referral to a surgeon for evaluation for your bleeding in your stool problem. You will likely need upper and lower scope (endoscopy) to evaluate this further. It is very important that you follow-up. Return for worse pain, fever, vomiting, weakness, breathing problems or other concerns as needed. EULALIO LIND MD Jul 30, 2018 20:59
[2018-07-30] MEDS ORDERED: NS IV 1000 ML 1,000 ML ONE (21:03)
[2018-07-30 21:05] LABS: ALANINE AMINOTRANSFERASE 15 U/L (0-55); ALBUMIN 4.1 GM/DL (3.2-4.5); ALKALINE PHOSPHATASE 63 U/L (40-136); BILIRUBIN,TOTAL 0.2 MG/DL (0.1-1.0); BUN/CREATININE RATIO 8; CARBON DIOXIDE 24 MMOL/L (21-32); CHLORIDE 108 MMOL/L (98-107); CREATININE SERUM 0.86 MG/DL (0.60-1.30); GFR ESTIMATED > 60; GLUCOSE 95 MG/DL (70-105); POTASSIUM 3.7 MMOL/L (3.6-5.0); SODIUM 141 MMOL/L (135-145); TOTAL PROTEIN 6.7 GM/DL (6.4-8.2)
[2018-07-30] MEDS ORDERED: NS IV 1000 ML 1,000 ML IV ONE (21:05)
[2018-07-30] MEDS ORDERED: IOHEXOL 350 MG/ML 100 ML (OMNIPAQUE 350) VIAL IV ONE (22:30)
[2018-07-30] MEDS ORDERED: NS 100 ML (IVPB) BAG IV ONE (22:30)
[2018-07-30 22:40] LABS: BILIRUBIN,URINE NEGATIVE (NEGATIVE); CLARITY,URINE CLEAR; COLOR,URINE YELLOW; GLUCOSE, URINE (UA) NEGATIVE (NEGATIVE); KETONES,URINE NEGATIVE (NEGATIVE); LEUKOCYTE ESTERASE ,URINE NEGATIVE (NEGATIVE); NITRITE,URINE NEGATIVE (NEGATIVE); PH,URINE 6.5 (5-9); PROTEIN,URINE NEGATIVE (NEGATIVE); UROBILINOGEN,URINE NORMAL (NORMAL)
[2018-07-30 22:55] LABS: BACTERIA,URINE FEW /HPF; RBC,URINE RARE /HPF; WBC,URINE 0-2 /HPF
[2018-07-30] MEDS ORDERED: fentaNYL INJECTION 100 MCG/2 ML AMP IVP STA (23:19)
[2018-07-30] MEDS ORDERED: LIDOCAINE 2% VISCOUS 15 ML UDC PO ONE (23:30)
[2018-07-30] MEDS ORDERED: PANTOPRAZOLE 40 MG (PROTONIX) VIAL IV ONE (23:30)
[2018-07-30] MEDS ORDERED: ANTACID SUSP 30 ML UDC (MYLANTA) PO ONE (23:30)
[2018-07-31 00:27] VITALS: BP 125/78
--- NOTE | 2018-07-31 06:52 | Diagnostic Imaging Report ---
PROCEDURE: CT abdomen and pelvis with contrast. TECHNIQUE: Multiple contiguous axial images were obtained through the abdomen and pelvis after administration of intravenous contrast. INDICATION: Right upper quadrant pain for 6 weeks with diarrhea and constipation COMPARISON: None FINDINGS: The lung bases are clear. The heart is normal in size. There is no pericardial effusion. The liver demonstrates no focal lesions. The spleen appears normal. The pancreas appears normal. The adrenal glands are unremarkable. There is mild rotation of the right kidney, otherwise the kidneys are unremarkable. There are fluid-filled loops of small bowel which do not appear significantly distended. Moderate stool is seen in the ascending and transverse colon. The appendix appears normal. There is a right ovarian follicle measuring 1.5 cm. No significant free fluid is seen. No acute osseous abnormality is seen. There are mild degenerative changes in the spine. IMPRESSION: 1. No acute abdominopelvic abnormality is seen. There is moderate stool in the ascending and transverse colon. Dictated by: Dictated on workstation # [id number]
== END 2018-07-31 00:27 | disposition home or self-care (01) ==
LOC: EDUNIT# 19:05 → ER 19:06
DX: R10.11 Right upper quadrant pain (principal); F90.9 Attention-deficit hyperactivity disorder, unspecified type; F41.9 Anxiety disorder, unspecified; F31.9 Bipolar disorder, unspecified; F12.10 Cannabis abuse, uncomplicated; F17.210 Nicotine dependence, cigarettes, uncomplicated; Z98.890 Other specified postprocedural states
CPT/HCPCS: 36415; 74177; 80053; 81000; 84703; 85025; 96361; 96374; 96375